=== PATIENT | male | born 1975 | race Caucasian/White ===

== ENCOUNTER 2019-03-23 06:28 | Inpatient (IN) | payer SELFPAY ==
[2019-03-23] VITALS (7 sets, daily range): BP systolic 117–189; BP diastolic 58–97
[~2019-03-23] VITALS: Ht 160 cm; Wt 56.7 kg
[2019-03-23] MEDS ORDERED: NACL 0.9% 1,000 ML IV SCH (06:38)
[2019-03-23] MEDS ORDERED: ONDANSETRON 4 MG/2 ML VIAL IVP ONE (06:40)
[2019-03-23 07:29] LABS: HEMATOCRIT 49.9 % (36-52); HEMOGLOBIN 16.4 g/dL (12.0-18.0); LYMPHOCYTES # (AUTO) 0.6 K/uL (2.0-11.5); MEAN CORPUSCULAR HEMOGLOBIN 31 pg (27-31); MEAN CORPUSCULAR HGB CONC 33 g/dL (33-37); MEAN CORPUSCULAR VOLUME 93.9 fL (80-94); MONOCYTES # (AUTO) 0.5 K/uL (0.8-1.0); MONOCYTES % (AUTO) 2.6 % (1.7-9.3); NEUTROPHILS # (AUTO) 16.6 K/uL (1.8-7.7); PLATELET COUNT (AUTO) 331 K/uL (140-450); RED BLOOD CELL COUNT(AUTO) 5.32 MIL/uL (4.20-6.10); RED CELL DISTRIBUTION WIDTH 14.3 % (11.6-13.7); WHITE BLOOD COUNT (AUTO) 17.7 K/uL (4.8-10.8)
[2019-03-23] MEDS ORDERED: diphenhydrAMINE 50 MG/ML VIAL IVP ONE (07:35)
[2019-03-23] MEDS ORDERED: GLYCOPYRROLATE 0.2 MG/ML VIAL IV ONE (07:35)
[2019-03-23] MEDS ORDERED: HALOPERIDOL IM 5 MG/ML VIAL IM ONE (07:35)
[2019-03-23 07:47] LABS: LYMPHOCYTES % (AUTO) 3.5 % (20.5-51.1); NEUTROPHILS % (AUTO) 93.9 % (42.2-75.2)
[2019-03-23 07:48] LABS: ALBUMIN 4.6 g/dL (3.4-5.0); CARBON DIOXIDE 13.3 mmol/L (21-32); CREATININE 1.6 mg/dL (0.7-1.3); POTASSIUM 4.2 mmol/L (3.5-5.1); TOTAL BILIRUBIN 1.1 mg/dL (0.0-1.0)
[2019-03-23 08:32] LABS: ANION GAP 36.9 (8-16)
[2019-03-23 08:41] LABS: BILIRUBIN,URINE NEGATIVE (NEGATIVE); BLOOD, URINE 1+ (NEGATIVE); COLOR,URINE YELLOW (YELLOW); LEUKOCYTE ESTERASE ,URINE NEGATIVE (NEGATIVE); NITRITE, URINE NEGATIVE (NEGATIVE); PH,URINE 5.5 (5.0-9.0); UGLUCOSE 3+ (NEGATIVE)
[2019-03-23 08:43] LABS: APPEARANCE,URINE HAZY (CLEAR)
[2019-03-23 08:49] LABS: BARBITURATE, URINE NEG. ng/ml (NEG <=200); BENZODIAZEPINE, URINE NEG. ng/mL (NEG <=200); CANNABINOID, URINE POS. ng/mL (NEG <=50); COCAINE, URINE NEG. ng/mL (NEG <=300); OPIATE, URINE NEG. ng/mL (NEG <=2000); PHENCYCLIDINE SCREEN,URINE NEG. ng/mL (NEG <=25)
[2019-03-23 08:58] LABS: PROTHROMBIN TIME 9.6 secs (10.8-13.4)
[2019-03-23 09:17] LABS: GAMMA GLUTAMYL TRANSFERASE 94 U/L (7-51); MAGNESIUM 2.1 mg/dL (1.8-2.4)
[2019-03-23 09:18] LABS: RBC,URINE 0-5 /HPF (0-5); WBC,URINE 0-5 /HPF (0-5)
[2019-03-23] MEDS ORDERED: NACL 0.9% 2,000 ML IV SCH (09:44)
[2019-03-23] MEDS ORDERED: INSULIN REGULAR, HUMAN 100 UNIT/ML VIAL IVP ONE (09:45)
[2019-03-23] MEDS ORDERED: THIAMINE 200 MG/2 ML VIAL IM ONE (09:45)
[2019-03-23] MEDS ORDERED: SLIDE SUBQ (10:21)
[2019-03-23] MEDS ORDERED: INSU100I7 SQ (10:21)
[2019-03-23] MEDS ORDERED: SODIUM BICARBONATE 8.4% PFS 50 MEQ/50 ML SYR IVP ONE (10:25)
[2019-03-23] MEDS ORDERED: DEXTROSE 50% 50 ML SYR IVP PRN (10:55)
[2019-03-23] MEDS ORDERED: NACL 0.9% 1,000 ML IV ONE (11:00)
[2019-03-23] MEDS ORDERED: LORazepam 2 MG/ML VIAL IM/IVP PRN (11:00)
[2019-03-23] MEDS ORDERED: HYDROcodone/APAP 7.5/325 MG 1 TAB PO PRN (11:00)
[2019-03-23] MEDS ORDERED: FAMOTIDINE 20 MG/2 ML VIAL IV PRN (11:00)
[2019-03-23] MEDS ORDERED: DOCUSATE SODIUM 100 MG GELCAP PO PRN (11:00)
[2019-03-23] MEDS ORDERED: ACETAMINOPHEN 325 MG TAB PO PRN (11:00)
[2019-03-23] MEDS ORDERED: LORazepam 2 MG/ML VIAL IM/IVP SCH (11:20)
[2019-03-23] MEDS: BLOOD GLUCOSE MONITORING 1 DEV DEV FS SCH ×14 (11:30→23:55)
[2019-03-23 11:58] LABS: CHOL/HDL RATIO 5.3 (1-4.5)
[2019-03-23] MEDS ORDERED: PANTOPRAZOLE 40 MG INJ VIAL IVP SCH (13:30)
[2019-03-23 13:36] LABS: ALBUMIN 4.8 g/dL (3.4-5.0); PHOSPHORUS 5.3 mg/dL (2.5-4.9)
[2019-03-23 13:37] LABS: MAGNESIUM 2.1 mg/dL (1.8-2.4); PHOSPHORUS 5.4 mg/dL (2.5-4.9)
[2019-03-23 13:37] LABS: FREE T4 (FREE THYROXINE) 1.51 ng/dL (0.76-1.46); THYROID STIMULATING HORMONE 2.5 uIU/mL (0.34-3.74)
[2019-03-23] MEDS: INSULIN REGULAR, HUMAN 100 UNIT in NACL 0.9% 100 ML IV SCH ×4 (14:11→17:24)
[2019-03-23 17:18] LABS: ANION GAP 26.4 (8-16); CARBON DIOXIDE 13.6 mmol/L (21-32); CREATININE 1.2 mg/dL (0.7-1.3)
[2019-03-23] MEDS: ONDANSETRON 4 MG/2 ML VIAL IM/IVP PRN (17:28)
[2019-03-23] MEDS: DEXT 5% / NACL 0.45% 1,000 ML IV SCH ×2 (17:51→22:06)
[2019-03-23] MEDS ORDERED: NACL 0.45% 1,000 ML IV SCH (18:00)
[2019-03-23] MEDS ORDERED: KCL 20 MEQ/WATER INJ PREMIX 200 ML IV ONE (18:00)
[2019-03-23 19:12] LABS: MAGNESIUM 1.9 mg/dL (1.8-2.4)
[2019-03-23 20:17] LABS: MAGNESIUM 1.9 mg/dL (1.8-2.4)
[2019-03-23 20:19] LABS: ANION GAP 16.4 (8-16); CARBON DIOXIDE 21.3 mmol/L (21-32); POTASSIUM 3.7 mmol/L (3.5-5.1)
[2019-03-23 20:20] LABS: PHOSPHORUS 1.1 mg/dL (2.5-4.9)
[2019-03-23] MEDS ORDERED: SODIUM PHOSPHATE 15 MMOLE in NACL 0.9% 250 ML IV ONE (21:00)
[2019-03-24] VITALS (15 sets, daily range): BP systolic 126–172; BP diastolic 76–102
[2019-03-24] MEDS: NACL 0.9% 1,000 ML IV SCH
[2019-03-24 00:18] LABS: MAGNESIUM 1.7 mg/dL (1.8-2.4); PHOSPHORUS 1.4 mg/dL (2.5-4.9)
[2019-03-24 00:20] LABS: ANION GAP 14.9 (8-16); CARBON DIOXIDE 22.6 mmol/L (21-32); CREATININE 0.9 mg/dL (0.7-1.3); POTASSIUM 3.5 mmol/L (3.5-5.1)
[2019-03-24] MEDS: BLOOD GLUCOSE MONITORING 1 DEV DEV FS SCH ×23 (00:55→23:10)
[2019-03-24] MEDS: DEXT 5% / NACL 0.45% 1,000 ML IV SCH ×6 (01:50→21:10)
[2019-03-24] MEDS ORDERED: MAG SULF 2000 MG/WATER PREMIX 50 ML IV SCH ×2 (03:00→23:00)
[2019-03-24] MEDS: ONDANSETRON 4 MG/2 ML VIAL IM/IVP PRN ×4 (03:45→22:10)
[2019-03-24 04:19] LABS: ANION GAP 15.7 (8-16); CARBON DIOXIDE 22.4 mmol/L (21-32); CREATININE 0.9 mg/dL (0.7-1.3); POTASSIUM 3.1 mmol/L (3.5-5.1)
[2019-03-24] MEDS: KCL 20 MEQ/WATER INJ PREMIX 100 ML IV SCH ×2 (06:20→07:50)
[2019-03-24 08:50] LABS: ANION GAP 12.1 (8-16); CARBON DIOXIDE 26.2 mmol/L (21-32); CREATININE 0.8 mg/dL (0.7-1.3); POTASSIUM 3.3 mmol/L (3.5-5.1)
[2019-03-24 08:55] LABS: MAGNESIUM 2.3 mg/dL (1.8-2.4); PHOSPHORUS 1.8 mg/dL (2.5-4.9)
[2019-03-24] MEDS: PANTOPRAZOLE 40 MG INJ VIAL IVP SCH (08:56)
[2019-03-24 13:24] LABS: CREATININE 0.9 mg/dL (0.7-1.3); POTASSIUM 3.1 mmol/L (3.5-5.1)
[2019-03-24 13:25] LABS: MAGNESIUM 1.9 mg/dL (1.8-2.4); PHOSPHORUS 1.4 mg/dL (2.5-4.9)
[2019-03-24 13:48] LABS: ANION GAP 14.7 (8-16); CARBON DIOXIDE 24.4 mmol/L (21-32)
[2019-03-24] MEDS: FAMOTIDINE 20 MG/2 ML VIAL IV SCH (14:06)
[2019-03-24 16:28] LABS: BASOPHILS % (AUTO) 0.3 % (0.0-2.0); HEMATOCRIT 37.7 % (36-52); HEMOGLOBIN 12.8 g/dL (12.0-18.0); LYMPHOCYTES # (AUTO) 0.7 K/uL (2.0-11.5); LYMPHOCYTES % (AUTO) 5.2 % (20.5-51.1); MEAN CORPUSCULAR HEMOGLOBIN 30 pg (27-31); MEAN CORPUSCULAR HGB CONC 34 g/dL (33-37); MEAN CORPUSCULAR VOLUME 89.7 fL (80-94); MONOCYTES # (AUTO) 0.7 K/uL (0.8-1.0); NEUTROPHILS # (AUTO) 12.7 K/uL (1.8-7.7); NEUTROPHILS % (AUTO) 89.5 % (42.2-75.2); PLATELET COUNT (AUTO) 239 K/uL (140-450); RED BLOOD CELL COUNT(AUTO) 4.21 MIL/uL (4.20-6.10); WHITE BLOOD COUNT (AUTO) 14.2 K/uL (4.8-10.8)
[2019-03-24 16:46] LABS: ANION GAP 13.8 (8-16); CARBON DIOXIDE 27.1 mmol/L (21-32); CREATININE 0.9 mg/dL (0.7-1.3)
[2019-03-24 16:49] LABS: MAGNESIUM 1.8 mg/dL (1.8-2.4); PHOSPHORUS 1.2 mg/dL (2.5-4.9)
[2019-03-24 17:21] LABS: POTASSIUM 2.9 mmol/L (3.5-5.1)
[2019-03-24] MEDS ORDERED: POTASSIUM CHLORIDE 10 MEQ TABER PO SCH (18:00)
[2019-03-24] MEDS ORDERED: POTASSIUM PHOSPHATE 30 MM in NACL 0.9% 250 ML IV SCH (18:00)
[2019-03-24] MEDS: INSULIN REGULAR, HUMAN 100 UNIT in NACL 0.9% 100 ML IV SCH ×2 (19:09)
[2019-03-24 20:25] LABS: ANION GAP 14.3 (8-16); CARBON DIOXIDE 26.7 mmol/L (21-32); CREATININE 0.9 mg/dL (0.7-1.3)
[2019-03-24 20:28] LABS: MAGNESIUM 1.7 mg/dL (1.8-2.4); PHOSPHORUS 1.8 mg/dL (2.5-4.9)
[2019-03-24] MEDS ORDERED: POTASSIUM PHOSPHATE 15 MM in NACL 0.9% 250 ML IV ONE (22:00)
[2019-03-24] MEDS ORDERED: SODIUM PHOS / POTASSIUM PHOS 1 PKT PDR PO SCH (23:00)
[2019-03-24] MEDS ORDERED: SODIUM PHOS / POTASSIUM PHOS 1 PKT PDR ONE (23:18)
[2019-03-25] VITALS (11 sets, daily range): BP systolic 128–165; BP diastolic 77–99
[2019-03-25] MEDS: KCL 20 MEQ/WATER INJ PREMIX 100 ML IV SCH ×2 (00:25→02:19)
[2019-03-25] MEDS: BLOOD GLUCOSE MONITORING 1 DEV DEV FS SCH ×11 (00:26→20:00)
[2019-03-25 00:41] LABS: ANION GAP 15.4 (8-16); CARBON DIOXIDE 25.1 mmol/L (21-32); CREATININE 0.7 mg/dL (0.7-1.3); POTASSIUM 3.5 mmol/L (3.5-5.1)
[2019-03-25 00:46] LABS: MAGNESIUM 1.7 mg/dL (1.8-2.4); PHOSPHORUS 2.3 mg/dL (2.5-4.9)
[2019-03-25] MEDS ORDERED: INSULIN LANTUS 100 UNITS/ML 10 ML VIAL SUBQ SCH ×2 (01:00→09:00)
[2019-03-25] MEDS: INSULIN LISPRO SLIDING SCALE 100 UNITS/ML VIAL SUBQ PRN ×5 (01:02→21:09)
[2019-03-25] MEDS: ONDANSETRON 4 MG/2 ML VIAL IM/IVP PRN ×2 (05:49→12:31)
[2019-03-25 06:12] LABS: CREATININE 0.7 mg/dL (0.7-1.3); POTASSIUM 3.9 mmol/L (3.5-5.1)
[2019-03-25 06:20] LABS: BASOPHILS % (AUTO) 0.2 % (0.0-2.0); HEMATOCRIT 38.1 % (36-52); HEMOGLOBIN 12.7 g/dL (12.0-18.0); LYMPHOCYTES # (AUTO) 1.1 K/uL (2.0-11.5); LYMPHOCYTES % (AUTO) 9.7 % (20.5-51.1); MEAN CORPUSCULAR HEMOGLOBIN 30 pg (27-31); MEAN CORPUSCULAR HGB CONC 33 g/dL (33-37); MEAN CORPUSCULAR VOLUME 90.6 fL (80-94); MONOCYTES # (AUTO) 0.7 K/uL (0.8-1.0); MONOCYTES % (AUTO) 6.4 % (1.7-9.3); NEUTROPHILS # (AUTO) 9.3 K/uL (1.8-7.7); NEUTROPHILS % (AUTO) 83.7 % (42.2-75.2); PLATELET COUNT (AUTO) 235 K/uL (140-450); RED BLOOD CELL COUNT(AUTO) 4.21 MIL/uL (4.20-6.10); RED CELL DISTRIBUTION WIDTH 14.1 % (11.6-13.7); WHITE BLOOD COUNT (AUTO) 11.2 K/uL (4.8-10.8)
[2019-03-25 06:31] LABS: ANION GAP 13.8 (8-16); CARBON DIOXIDE 26.1 mmol/L (21-32)
[2019-03-25 06:34] LABS: MAGNESIUM 2.2 mg/dL (1.8-2.4); PHOSPHORUS 1.8 mg/dL (2.5-4.9)
[2019-03-25] MEDS ORDERED: PROBIOTIC SCREEN 1 EA MISC MC PRN (09:20)
[2019-03-25] MEDS: PANTOPRAZOLE 40 MG INJ VIAL IVP SCH (09:25)
[2019-03-25 10:47] LABS: ANION GAP 16.7 (8-16); POTASSIUM 3.7 mmol/L (3.5-5.1)
[2019-03-25 10:59] LABS: PHOSPHORUS 2.4 mg/dL (2.5-4.9)
[2019-03-25] MEDS: NACL 0.9% 1,000 ML IV SCH ×2 (14:20→23:30)
[2019-03-25] MEDS: FAMOTIDINE 20 MG/2 ML VIAL IV SCH (14:30)
[2019-03-25] MEDS: SODIUM PHOS / POTASSIUM PHOS 1 PKT PDR PO SCH (21:11)
[2019-03-26] VITALS: BP 150/94
[2019-03-26] MEDS: BLOOD GLUCOSE MONITORING 1 DEV DEV FS SCH ×6 (00:03→20:56)
[2019-03-26] MEDS: INSULIN LISPRO SLIDING SCALE 100 UNITS/ML VIAL SUBQ PRN ×2 (04:13→11:57)
[2019-03-26] MEDS: NACL 0.9% 1,000 ML IV SCH ×2 (04:16→19:25)
[2019-03-26 07:11] LABS: MAGNESIUM 1.7 mg/dL (1.8-2.4); PHOSPHORUS 2.3 mg/dL (2.5-4.9)
[2019-03-26 07:52] LABS: BASOPHILS % (AUTO) 0.4 % (0.0-2.0); EOSINOPHILS % (AUTO) 0.4 % (0.0-4.0); HEMATOCRIT 37.2 % (36-52); HEMOGLOBIN 12.6 g/dL (12.0-18.0); LYMPHOCYTES # (AUTO) 1.2 K/uL (2.0-11.5); LYMPHOCYTES % (AUTO) 21.5 % (20.5-51.1); MEAN CORPUSCULAR HEMOGLOBIN 31 pg (27-31); MEAN CORPUSCULAR HGB CONC 34 g/dL (33-37); MEAN CORPUSCULAR VOLUME 90.8 fL (80-94); MONOCYTES # (AUTO) 0.4 K/uL (0.8-1.0); MONOCYTES % (AUTO) 7.6 % (1.7-9.3); NEUTROPHILS # (AUTO) 3.9 K/uL (1.8-7.7); NEUTROPHILS % (AUTO) 70.1 % (42.2-75.2); PLATELET COUNT (AUTO) 225 K/uL (140-450); RED CELL DISTRIBUTION WIDTH 13.5 % (11.6-13.7); WHITE BLOOD COUNT (AUTO) 5.5 K/uL (4.8-10.8)
[2019-03-26 08:00] VITALS: BP 135/85
[2019-03-26 08:22] LABS: CARBON DIOXIDE 26.7 mmol/L (21-32); POTASSIUM 3.7 mmol/L (3.5-5.1)
[2019-03-26 08:23] LABS: CREATININE 0.9 mg/dL (0.7-1.3)
[2019-03-26] MEDS: PANTOPRAZOLE 40 MG INJ VIAL IVP SCH (08:25)
[2019-03-26] MEDS: METOPROLOL 25 MG TAB PO SCH ×2 (08:25→20:33)
[2019-03-26] MEDS: SODIUM PHOS / POTASSIUM PHOS 1 PKT PDR PO SCH ×2 (08:25→20:33)
[2019-03-26] MEDS: INSULIN LANTUS 100 UNITS/ML 10 ML VIAL SUBQ SCH (08:44)
[2019-03-26] MEDS ORDERED: MAGNESIUM OXIDE 400 MG TAB PO SCH (13:00)
[2019-03-26] MEDS: FAMOTIDINE 20 MG/2 ML VIAL IV SCH (13:15)
[2019-03-26] MEDS ORDERED: SODIUM PHOS / POTASSIUM PHOS 1 PKT PDR PO SCH (13:30)
[2019-03-26 16:00] VITALS: BP 138/89
[2019-03-26 20:31] VITALS: BP 130/92
[2019-03-27] MEDS: BLOOD GLUCOSE MONITORING 1 DEV DEV FS SCH ×2 (05:02→11:51)
[2019-03-27 06:22] LABS: BASOPHILS % (AUTO) 0.3 % (0.0-2.0); EOSINOPHILS # (AUTO) 0.1 K/uL (0-0.4); EOSINOPHILS % (AUTO) 0.9 % (0.0-4.0); HEMOGLOBIN 12.6 g/dL (12.0-18.0); LYMPHOCYTES # (AUTO) 1.2 K/uL (2.0-11.5); LYMPHOCYTES % (AUTO) 16.3 % (20.5-51.1); MEAN CORPUSCULAR HEMOGLOBIN 31 pg (27-31); MEAN CORPUSCULAR HGB CONC 34 g/dL (33-37); MEAN CORPUSCULAR VOLUME 90.1 fL (80-94); MONOCYTES # (AUTO) 0.5 K/uL (0.8-1.0); MONOCYTES % (AUTO) 6.6 % (1.7-9.3); NEUTROPHILS # (AUTO) 5.8 K/uL (1.8-7.7); NEUTROPHILS % (AUTO) 75.9 % (42.2-75.2); PLATELET COUNT (AUTO) 213 K/uL (140-450); RED BLOOD CELL COUNT(AUTO) 4.11 MIL/uL (4.20-6.10); RED CELL DISTRIBUTION WIDTH 13.6 % (11.6-13.7); WHITE BLOOD COUNT (AUTO) 7.6 K/uL (4.8-10.8)
[2019-03-27] MEDS ORDERED: OMEP20TC12 PO (06:42)
[2019-03-27] MEDS ORDERED: METO25TA PO (06:42)
[2019-03-27 07:19] LABS: MAGNESIUM 1.8 mg/dL (1.8-2.4); PHOSPHORUS 4.2 mg/dL (2.5-4.9)
[2019-03-27 07:30] LABS: ANION GAP 11.1 (8-16); CARBON DIOXIDE 30.2 mmol/L (21-32); CREATININE 0.7 mg/dL (0.7-1.3); POTASSIUM 4.3 mmol/L (3.5-5.1)
[2019-03-27 08:00] VITALS: BP 140/92
[2019-03-27] MEDS: PANTOPRAZOLE 40 MG INJ VIAL IVP SCH (08:56)
[2019-03-27] MEDS: SODIUM PHOS / POTASSIUM PHOS 1 PKT PDR PO SCH (08:57)
[2019-03-27] MEDS: METOPROLOL 25 MG TAB PO SCH (08:57)
[2019-03-27] MEDS: INSULIN LANTUS 100 UNITS/ML 10 ML VIAL SUBQ SCH (08:58)
[2019-03-27] MEDS: NACL 0.9% 1,000 ML IV SCH (11:51)
[2019-03-27] MEDS ORDERED: GLUC-805 FS (13:08)
== END 2019-03-27 13:05 | disposition home or self-care (01) | DRG 917 ==
LOC: MED 06:28 → MIC 10:48 → MMU 03-25 13:50
PROVIDERS: ADMIT General Practice; ATTEND General Practice
PROC: 02HV33Z Insertion of Infusion Device into Superior Vena Cava, Percutaneous Approach (ICD-10-PCS; principal; 2019-03-23)
PROC: B548ZZA Ultrasonography of Superior Vena Cava, Guidance (ICD-10-PCS; 2019-03-23)
DX: T40.7X1A Poisoning by cannabis (derivatives), accidental (unintentional), initial encounter (principal); N17.0 Acute kidney failure with tubular necrosis; E11.10 Type 2 diabetes mellitus with ketoacidosis without coma; G92 Toxic encephalopathy; R65.10 Systemic inflammatory response syndrome (SIRS) of non-infectious origin without acute organ dysfunction; E87.8 Other disorders of electrolyte and fluid balance, not elsewhere classified; F12.929 Cannabis use, unspecified with intoxication, unspecified; R31.9 Hematuria, unspecified; E83.39 Other disorders of phosphorus metabolism; Y92.89 Other specified places as the place of occurrence of the external cause
CPT/HCPCS: 36415; 36600; 71045; 76770; 80048; 80053; 80305; 81001; 82009; 82040; 82150; 82272; 82803; 82948; 82977; 83036; 83605; 83615; 83690; 83735; 83880; 84100; 84436; 84439; 84443; 84484; 85025; 85610; 85730; 86886; 86900; 86901; 87040; 87081; 87086; 93005; 93970; 96361; 96372; 96374; 96375; 99285; C9113; G0482; J1200; J1630; J1642; J1815; J2060; J2405; J3411; J3475; J3480; J3490; J7030; Q0092

== ENCOUNTER 2019-03-29 08:28 | Emergency (ER) | payer SELFPAY ==
[~2019-03-29] VITALS: Ht 160 cm; Wt 56.7 kg
[~2019-03-29 08:28] MED LIST: GLUC-805 FS; INSU100I7 SQ; METO25TA PO; OMEP20TC12 PO; SLIDE SUBQ
[2019-03-29 08:37] VITALS: BP 126/76
[2019-03-29] MEDS ORDERED: cefTRIAXone 1,000 MG in LIDOCAINE 1% 2.1 ML IM ONE (08:50)
[2019-03-29] MEDS ORDERED: KETOROLAC 60 MG/2 ML VIAL IM ONE (08:50)
--- NOTE | 2019-03-29 08:50 | NUR ---
PATIENT PRESENTS TO ED WITH DIFFICULTY VOIDING X 1 DAY, PREVIOUS CATHETER PLACEMENT, CATH REMOVED 03/26/19 . DENIES N/V/D; SKIN IS PINK/WARM/DRY; LUNGS CLEAR BL; HR EVEN AND REGULAR; PT DENIES ANY FEVER, CP, SOB, OR COUGH AT THIS TIME; PATIENT STATES LOWER ABDOMINAL PAIN OF 3/10 AT THIS TIME; VSS; PATIENT POSITIONED FOR COMFORT; HOB ELEVATED; BEDRAILS UP X2; BED DOWN. ER MD MADE AWARE OF PT STATUS.
--- NOTE | 2019-03-29 09:00 | NUR ---
Patient being evaluated by physician at bedside.
[2019-03-29] MEDS ORDERED: cefTRIAXone 1,000 MG VIAL ONE ×2 (09:36→09:38)
[2019-03-29] MEDS ORDERED: LIDOCAINE MPF 1% 5 ML ONE (09:39)
[2019-03-29 10:11] LABS: APPEARANCE,URINE CLEAR (CLEAR); BILIRUBIN,URINE NEGATIVE (NEGATIVE); BLOOD, URINE NEGATIVE (NEGATIVE); COLOR,URINE YELLOW (YELLOW); LEUKOCYTE ESTERASE ,URINE NEGATIVE (NEGATIVE); NITRITE, URINE NEGATIVE (NEGATIVE); UGLUCOSE 3+ (NEGATIVE)
[2019-03-29 10:24] LABS: RBC,URINE 0 /HPF (0-5); WBC,URINE 0-5 /HPF (0-5)
[2019-03-29 11:47] VITALS: BP 121/84
--- NOTE | 2019-03-29 11:47 | NUR ---
Patient discharged with v/s stable. Written and verbal after care instructions given and explained. Patient alert, oriented and verbalized understanding of instructions. Ambulatory with steady gait. All questions addressed prior to discharge. ID band removed. Patient advised to follow up with PMD. Rx of PYRIDIUM given. Patient educated on indication of medication including possible reaction and side effects. Opportunity to ask questions provided and answered.
== END 2019-03-29 11:47 | disposition home or self-care (01) ==
LOC: MED 08:28
DX: R30.0 Dysuria (principal); E11.9 Type 2 diabetes mellitus without complications; Z79.4 Long term (current) use of insulin; Z79.899 Other long term (current) drug therapy
CPT/HCPCS: 74176; 81001; 82948; 96372; 99284; J0696; J1885; J2001

== ENCOUNTER 2022-02-14 10:44 | Emergency (ER) | payer OTHER ==
[~2022-02-14] VITALS: Ht 160 cm; Wt 56.5 kg
[~2022-02-14 10:44] MED LIST changes: +OMEP-278 PO; -OMEP20TC12 PO
[2022-02-14 10:59] VITALS: BP 106/80
--- NOTE | 2022-02-14 15:00 | NUR ---
C/O DIZZINESS & FALL X 3 WEEKS AGO. DENIES LOC. BLOOD SUGAR 227 AT THIS TIME
[2022-02-14] MEDS ORDERED: MECL-303 PO (15:25)
[2022-02-14 15:47] VITALS: BP 100/72
--- NOTE | 2022-02-14 15:47 | NUR ---
Patient discharged with v/s stable. Written and verbal after care instructions given and explained. Patient alert, oriented and verbalized understanding of instructions. Ambulatory with steady gait. All questions addressed prior to discharge. ID band removed. Patient advised to follow up with PMD. Rx of ANTIVERT given. Patient educated on indication of medication including possible reaction and side effects. Opportunity to ask questions provided and answered.
== END 2022-02-14 15:47 | disposition home or self-care (01) ==
LOC: MED 10:44
DX: S09.90XA Unspecified injury of head, initial encounter (principal); R42 Dizziness and giddiness; H93.19 Tinnitus, unspecified ear; E10.9 Type 1 diabetes mellitus without complications; F12.90 Cannabis use, unspecified, uncomplicated; Z79.4 Long term (current) use of insulin; Z79.899 Other long term (current) drug therapy; Z98.890 Other specified postprocedural states; W06.XXXA Fall from bed, initial encounter; Y93.89 Activity, other specified; Y92.89 Other specified places as the place of occurrence of the external cause; Y99.8 Other external cause status
CPT/HCPCS: 70450; 82948; 99284